=== PATIENT | male | born 1960 | race Caucasian/White ===

== ENCOUNTER 2023-08-21 16:18 | Emergency (ER) | payer OTHER ==
[~2023-08-21] VITALS: Ht 154.9 cm; Wt 45.4 kg
[2023-08-21 16:25] VITALS: BP_SYST 133; PULSE 105; RESP 18; TEMP 98.1; O2SAT 95
[2023-08-21] MEDS ORDERED: methylPREDNISolone SOD SUCC/PF 62.5 MG/ML VIAL ONE (16:54)
[2023-08-21] MEDS ORDERED: RACEPINEPHRINE HCL 0.5 ML VIAL.NEB INH ONE (16:58)
[2023-08-21] MEDS: methylPREDNISolone SOD SUCC/PF 62.5 MG/ML VIAL IVP ONE ×2 (17:01→21:18)
[2023-08-21 17:02] LABS: BASOPHILS % (AUTO) 0.2 % (0.0-2.0); EOSINOPHILS # (AUTO) 0.1 K/uL (0.0-0.4); EOSINOPHILS % (AUTO) 0.6 % (0.0-4.0); HEMATOCRIT 41.8 % (36-54); LYMPHOCYTES # (AUTO) 0.9 K/uL (1.0-5.5); LYMPHOCYTES % (AUTO) 10.6 % (20.5-51.5); MEAN CORPUSCULAR HEMOGLOBIN 29 pg (27-31); MEAN CORPUSCULAR HGB CONC 33 % (32-36); MEAN CORPUSCULAR VOLUME 88 fL (79.0-98.0); MONOCYTES # (AUTO) 0.6 K/uL (0.0-1.0); MONOCYTES % (AUTO) 6.5 % (1.7-9.3); NEUTROPHILS # (AUTO) 7.2 K/uL (1.8-7.7); NEUTROPHILS % (AUTO) 82.1 % (40.0-70.0); PLATELET COUNT (AUTO) 184 K/uL (130-430); RED BLOOD CELL COUNT(AUTO) 4.75 MIL/uL (4.2-6.2); RED CELL DISTRIBUTION WIDTH 13.8 % (9.0-15.0); WHITE BLOOD COUNT (AUTO) 8.8 K/uL (4.8-10.8)
[2023-08-21] MEDS: RACEPINEPHRINE HCL 0.5 ML VIAL.NEB INH ONE ×2 (17:04→20:55)
[2023-08-21 17:13] LABS: CALCIUM 8.6 mg/dL (8.4-11.0); CREATININE 0.97 mg/dL (0.55-1.30); POTASSIUM 4.4 mmol/L (3.5-5.1)
[2023-08-21] MEDS ORDERED: PIPERACILLIN/TAZOBACTAM 3.375 GM/VIAL (ZOSYN) IV ONE (18:37)
[2023-08-21] MEDS: D5W 1,000 ML IV ONE (18:43)
[2023-08-21] MEDS: PIPERACILLIN/TAZO 3.375 GM in NS 50 ML IV ONE (18:44)
[2023-08-21 19:27] VITALS: TEMP 98.1
[2023-08-21 21:25] VITALS: RESP 21
[2023-08-21 22:36] VITALS: BP_SYST 107; PULSE 71; O2SAT 98
== END 2023-08-21 22:36 | disposition short-term general hospital (02) ==
LOC: SED 16:18
DX: J69.0 Pneumonitis due to inhalation of food and vomit (principal); Z20.822 Contact with and (suspected) exposure to COVID-19; E87.0 Hyperosmolality and hypernatremia; J38.00 Paralysis of vocal cords and larynx, unspecified
CPT/HCPCS: 99285; 96365; 71045; 96375; 87426; 80048; 85025; 87040; 36415; 94640; 96376; J2543; J2930